=== PATIENT | male | born 1960 | race African-American/Black ===

== ENCOUNTER → 2021-06-09 | Outpatient (CLI) | payer BC ==
[~2021-06-09] MED LIST: ABILIFY 10MG TA10 MG PO; ADDERALL30 MG PO; ATIVAN 1MG T1 MG/TAB PO; CATAPRES 0.1MG0.1 MG PO; COREG12.5 MG PO; DESYREL 100MG100 MG PO; MYRBETR50MG PO; ZOLOFT 100MG100 MG PO
== END ==
LOC: COL.RAD 08:47
DX: Z01.812 Encounter for preprocedural laboratory examination (principal); C61 Malignant neoplasm of prostate; K76.0 Fatty (change of) liver, not elsewhere classified; K86.89 Other specified diseases of pancreas
CPT/HCPCS: A9503; Q9967

== ENCOUNTER → 2021-07-28 | Outpatient (CLI) | payer BC ==
[2021-07-28] VITALS (9 sets, daily range): BP systolic 143–166; BP diastolic 91–109; PULSE 53–67; TEMP 98.1
[~2021-07-28] VITALS: Ht 172.7 cm; Wt 107.4 kg
== END ==
LOC: COL.RAD 06:22
DX: C61 Malignant neoplasm of prostate (principal); M89.9 Disorder of bone, unspecified
CPT/HCPCS: J2250; J3010

== ENCOUNTER 2021-09-11 12:30 | Inpatient (IN) | payer BC ==
[~2021-09-11] VITALS: Ht 172.7 cm; Wt 110.3 kg
[2021-10-03] VITALS (11 sets, daily range): BP systolic 130–161; BP diastolic 75–88; PULSE 51–84; TEMP 97.8–98.3
[2021-10-03 09:42] LABS: BASO % 1.1 % (0.0-2.0); EOS # 0.1 K/mm3 (0.0-0.7); EOS % 3.6 % (0.0-4.0); GRAN # 2.4 K/mm3 (1.4-6.5); GRAN % 65.3 % (42.2-75.2); HEMATOCRIT 38.9 % (42.0-52.0); HEMOGLOBIN 13.7 g/dl (13.5-18.0); LYMPH # 0.7 K/mm3 (1.2-3.4); LYMPH % 18.9 % (20.0-51.0); MEAN CELL VOLUME 76 fl (80.0-100.0); MEAN CORPUSCULAR HEMOGLOBIN 27 pg (27-31); MEAN CORPUSCULAR HGB CONC 35 g/dl (33.0-37.0); MEAN PLATELET VOLUME 9.9 fl (7.4-10.4); MONO # 0.4 K/mm3 (0.1-0.6); MONO % 10.8 % (1.7-9.3); PLATELET COUNT 175 K/mm3 (130-400); RED BLOOD COUNT 5.12 M/mm3 (4.20-5.60); REDCELL DISTRIBUTION WIDTH-CV 14.9 % (11.5-14.5)
[2021-10-03 09:59] LABS: ALBUMIN 3.5 gm/dL (3.5-5.0); BILIRUBIN,TOTAL 1.6 mg/dL (0.2-1.2); CALCIUM 8.6 mg/dL (8.4-10.2); CREATININE, serum 0.92 mg/dL (0.72-1.25); POTASSIUM 3.6 mmol/L (3.5-4.5); TOTAL PROTEIN 6.1 gm/dL (6.2-8.1)
--- NOTE | 2021-10-03 10:15 | NUR ---
Pt ambulates to [facility] with , alert and oriented x3. Consent signed, gown on and warm blanket applied. Vital signs obtained. IV started to left forearm and lab drawn from it and taken to lab by labor representative. Assessments completed. Call light in reach, side rails upx2, family aware of the plan of care.
[2021-10-03] MEDS ORDERED: CONCERTA54 MG PO (10:20)
[2021-10-03] MEDS ORDERED: MINIPRESS2 MG (10:21)
[2021-10-03] MEDS ORDERED: AMITRIPTYLINE H50 M1 PO (10:22)
--- NOTE | 2021-10-03 20:00 | NUR ---
Pt. laying in bed at this time. Pt. is A&OX3, assessment complete. INT to lt. hand patent. Abd. incisions CDI. Pt. denies further needs, call light within reach.
[2021-10-04 03:58] VITALS: BP 159/73; PULSE 86; TEMP 97.8
[2021-10-04 06:25] LABS: HEMATOCRIT 38.6 % (42.0-52.0); HEMOGLOBIN 13.3 g/dl (13.5-18.0)
[2021-10-04 06:50] LABS: CALCIUM 8.3 mg/dL (8.4-10.2); CREATININE, serum 1.15 mg/dL (0.72-1.25); POTASSIUM 3.9 mmol/L (3.5-4.5)
[2021-10-04 08:28] VITALS: BP 143/70; PULSE 76; TEMP 97.8
--- NOTE | 2021-10-04 11:14 | NUR ---
ADELA DRAIN REMOVED WITHOUT COMPLICATIONS, GAUZE AND FOAM TAPE APPLIED.
[2021-10-04 11:46] VITALS: BP 151/83; PULSE 56; TEMP 98.2
--- NOTE | 2021-10-04 15:51 | NUR ---
First visit from the senior project engineer. No needs right now.
--- NOTE | 2021-10-04 16:01 | NUR ---
PT MET CRITERIA FOR DISCHARGE, VSS. PAIN CONTROLLED. IV REMOVED WITHOUT COMPLICATIONS, CATHETER INTACT. LAP SITES ARE C,D,I. INSTRUCTIONS GIVEN ON [facility]CGOVERN CARE. DISCHARGE INSTRUCTIONS REVIEWED, PT VERBALIZED UNDERSTANDING. PT AWARE OF FOLLOW UP APPT. PT DC TO HOME VIA WHEELCHAIR ACCOMPANIED BY AIDE.
== END 2021-10-04 16:03 | disposition home or self-care (01) | DRG 708 ==
LOC: INPTSU 10-03 09:02 → SURG 10-03 12:00
PROVIDERS: ADMIT Urology
PROC: 07BC4ZZ Excision of Pelvis Lymphatic, Percutaneous Endoscopic Approach (ICD-10-PCS; 2021-10-03)
PROC: 8E0W4CZ Robotic Assisted Procedure of Trunk Region, Percutaneous Endoscopic Approach (ICD-10-PCS; 2021-10-03)
PROC: 0VT04ZZ Resection of Prostate, Percutaneous Endoscopic Approach (ICD-10-PCS; principal; 2021-10-03 12:00)
DX: C61 Malignant neoplasm of prostate (principal); Z23 Encounter for immunization
CPT/HCPCS: A4314; A9284; J0330; J0690; J1885; J2270; J2370; J2704; J2710; J3475; J7120

== ENCOUNTER 2021-12-01 08:10 | Day surgery (SDC) | payer BC ==
[~2021-12-01] VITALS: Ht 172.7 cm; Wt 111.4 kg
[~2021-12-01 08:10] MED LIST changes: +AMITRIPTYLINE H50 M1 PO; +CONCERTA54 MG PO; +MINIPRESS2 MG
[2021-12-01] MEDS ORDERED: TOVIAZ8 MG PO (08:28)
[2021-12-01] MEDS ORDERED: DESYREL 100MG100 MG PO (08:30)
[2021-12-01] MEDS ORDERED: ADDERALL30 MG PO (08:33)
[2021-12-01 08:43] VITALS: BP 146/95; PULSE 61; TEMP 98
[2021-12-01 10:30] VITALS: BP 138/90; PULSE 56; TEMP 97.7
--- NOTE | 2021-12-01 10:30 | NUR ---
RECEIVED PT FROM ENDO RN. REPORT RECEIVED. VS OBTAINED. VSS. DISCUSSED PLAN OF CARE FOR DISCHARGE. ORIENTED PT TO ROOM AND CALL LIGHT. WILL CONTINUE TO MONITOR. DENIES ANY NEEDS AT THIS TIME.
[2021-12-01 10:45] VITALS: BP 133/97; PULSE 55
--- NOTE | 2021-12-01 10:45 | NUR ---
PT TOLERATING MUFFIN AND DIET PEPSI. DENIES ANY OTHER NEEDS AT THIS TIME. WILL CONTINUE TO MONITOR.
[2021-12-01 11:00] VITALS: BP 150/94; PULSE 57
--- NOTE | 2021-12-01 11:00 | NUR ---
PT STATES HE IS READY FOR DISCHARGE. IV DC'D AT THIS TIME. DISCHARGE EDUCATION COMPLETED WITH PT. VERBALIZED UNDERSTANDING OF HOME AND FOLLOW UP CARE. ALL QUESTIONS ANSWERED. DISCHARGE PAPERWORK GIVEN TO PT.
== END 2021-12-01 11:20 | disposition home or self-care (01) ==
LOC: SDCO 08:10
DX: Z12.11 Encounter for screening for malignant neoplasm of colon (principal); K57.30 Diverticulosis of large intestine without perforation or abscess without bleeding; Z90.49 Acquired absence of other specified parts of digestive tract; Z98.84 Bariatric surgery status
CPT/HCPCS: J2704; J3010; J7120